=== PATIENT | female | born 1990 | race African-American/Black ===

== ENCOUNTER 2018-02-28 14:42 | Emergency (ER) | payer MEDICAID ==
[~2018-02-28] VITALS: Ht 167.6 cm; Wt 75.0 kg
[2018-02-28] MEDS ORDERED: ACETAMINOPHEN 500MG TABLET PO ONE (17:30)
[2018-02-28] MEDS ORDERED: ONDANSETRON 4MG ODT PO ONE (17:30)
[2018-02-28] MEDS ORDERED: FAMOTIDINE 20MG TABLET PO ONE (17:30)
[2018-02-28 18:18] LABS: HEMATOCRIT. 39.9 % (36.0-48.0); HEMOGLOBIN. 13.7 g/dL (12.0-16.0); MEAN CORPUSCULAR HEMOGLOBIN 29.1 pg (28.0-32.0); MEAN CORPUSCULAR VOLUME 84.8 fL (81.0-99.0); MEAN PLATELET VOLUME 8.3 fl (7.4-10.4); PLATELET 327 x1000/uL (130-400); RED BLOOD CELL COUNT 4.71 mill/uL (4.2-5.4); RED CELL DISTRIBUTION WIDTH 13.6 % (11.6-14.6)
[2018-02-28 18:21] LABS: CHLORIDE 105 mEq/L (98-107)
[2018-02-28 18:22] LABS: PROTHROMBIN TIME 10.4 sec (9.1-11.1)
[2018-02-28 18:23] LABS: CLARITY URINE CLEAR (CLEAR); COLOR URINE YELLOW (YELLOW); KETONES URINE TRACE (NEGATIVE); LEUKOCYTE ESTERASE URINE NEGATIVE (NEGATIVE); NITRITE URINE NEGATIVE (NEGATIVE); OCCULT BLOOD URINE 2+ (NEGATIVE); PROTEIN URINE NEGATIVE (NEGATIVE); SPECIFIC GRAVITY URINE 1.016 (1.005-1.030); UROBILINOGEN URINE 0.2 E.U./dL (0.2-1.0)
[2018-02-28 18:33] LABS: PLATELET ESTIMATE NORMAL
[2018-02-28 19:12] VITALS: BP 101/68
== END 2018-02-28 19:14 | disposition home or self-care (01) ==
LOC: ER 16:40
DX: R10.84 Generalized abdominal pain (principal); R11.2 Nausea with vomiting, unspecified; R19.7 Diarrhea, unspecified
CPT/HCPCS: 36415; 80053; 81003; 81025; 83690; 85025; 85610; 99284; Q0162; Z7610